=== PATIENT | male | born 1975 | race Caucasian/White ===

== ENCOUNTER 2017-06-03 20:21 | Emergency (ER) | payer SELFPAY ==
[~2017-06-03 20:21] MED LIST: ISOVUE-370 76%-LOCM 1 ML ONE
[2017-06-03 20:54] LABS: #Basophils 0.1 thou/uL (0.0-0.2); #Eosinphils 0.1 thou/uL (0.0-0.7); #Lymphocytes 2.6 thou/uL (1.20-3.40); %Basophils 0.5 % (0.0-1.0); %Eosinophils 1.3 % (0.0-10.0); %Lymphocytes 24.3 % (21.0-51.0); %Monocytes 8.8 % (0.0-10.0); Hematocrit 39.5 % (42.0-52.0); Mean Platelet Volume 7.1 fL (7.4-10.4); Red Blood Cell (RBC) Count 4.47 mill/uL (4.70-6.10); White Blood Cell (WBC) Count 10.8 thou/uL (4.8-10.8)
[2017-06-03] MEDS ORDERED: Dexamethasone 10 MG/ML VIAL ONE (21:05)
[2017-06-03] MEDS ORDERED: Ketorolac Tromethamine 30 MG/ML VIAL ONE (21:05)
[2017-06-03 21:08] LABS: Lactic Acid - Sepsis 1.1 mmol/L (0.5-2.2)
[2017-06-03 21:10] LABS: ALT (SGPT) 21 U/L (8-55); AST (SGOT) 17 U/L (5-34); Alkaline Phosphatase 62 U/L (40-150); Anion Gap 9 mmol/L (10-20); BUN (Urea Nitrogen) 11 mg/dL (8.9-20.6); Bilirubin, Total 0.4 mg/dL (0.2-1.2); Calc. Creatinine Clearance 0 mL/min (70-130); Calcium 8.6 mg/dL (7.8-10.44); Carbon Dioxide 31 mmol/L (22-29); Chloride 102 mmol/L (98-107); Estimated GFR-MDRD Greater than 90; Globulin 3.1 g/dL (2.4-3.5); Protein, Total 6.6 g/dL (6.0-8.3)
[2017-06-03] MEDS ORDERED: MEROPENEM 1 GM/50 ML 1 GM in Premix Bag 1 BAG IVPB SCH (21:15)
--- NOTE | 2017-06-03 22:06 | RAD ---
ONE VIEW CHEST: HISTORY: Dyspnea. Shortness of breath. COMPARISON: None. FINDINGS: Normal cardiac silhouette. The pulmonary vessels and hilum are normal. The costophrenic angles are c lear. No mass. No consolidation. No pneumothorax or osseous abnormalities. IMPRESSION: No cardiopulmonary process process. POS: [facility]
--- NOTE | 2017-06-03 23:09 | CT ---
EXAM: POSTCONTRAST SOFT TISSUE NECK CT 06/03/17 HISTORY: Left ear pain. Pain radiating to left neck and face. Patient was given antibiotics and ear drops pietro ier today. Difficulty swallowing. COMPARISON: None. TECHNIQUE: Postcontrast soft tissue neck CT performed in the axial plane. Reformatted images are submitted for i nterpretation. FINDINGS: The visualized brain parenchyma is remarkable. Bilateral ocular lenses are appropriately located. Both globes are intact. Retrobulbar fat is preserv ed. Symmetric attenuation of the optic nerves and ocular rectus muscles. Adequate aeration of the visualized paranasal sinuses. Aerodigestive tract is patent. No mucosal abnormality. Epiglottis has a normal caliber. Pre-epiglotti c fat is preserved. Midline fatty raphae of the tongue is preserved. No obvious mass in the oral cavi ty. Symmetric attenuation of the sternocleidomastoid muscles. Symmetric attenuation of the parotid and echols bmandibular glands. Thyroid gland is unremarkable. There are nonspecific, nonenlarged bilateral soft tissue neck lymph nodes. Grossly, the great vessels of the neck are patent. There are varying degrees of central canal stenosis and foraminal narrowing on the basis of degenerat lexie change. No high grade stenosis or high grade foraminal narrowing. Evaluation is limited by techni que. Upper mediastinum and lung apices a unremarkable. There is adequate aeration of the right mastoid air cells. There is partial opacification of the left mastoid air cells and partial opacification of the left middle ear. There is enhancement involving the left external auditory canal. There is periauric ular subcutaneous fat stranding. There is no evidence of a drainable abscess. No evidence of a draina ble abscess radiating down the left neck. IMPRESSION: 1. Left otitis externa. There is partial opacification of the left middle ear and left mastoid a ir cells. A component of otitis media and mastoiditis cannot be excluded. Clinical correlation is ess ential. 2. Nonspecific upper limit normal lymph nodes in the left and right neck. No evidence of a drain able abscess in the left or right neck. POS: [facility]
== END 2017-06-04 00:29 | disposition home or self-care (01) ==
LOC: ERS 20:21
DX: H60.22 Malignant otitis externa, left ear (principal); H66.92 Otitis media, unspecified, left ear; E66.9 Obesity, unspecified; F17.210 Nicotine dependence, cigarettes, uncomplicated; F41.9 Anxiety disorder, unspecified; F32.9 Major depressive disorder, single episode, unspecified
CPT/HCPCS: 36415; 70491; 71010; 83605; 87040; 94760; 96361; 96365; 96375; J1100; J1885; J1956

== ENCOUNTER 2024-03-22 11:32 | Outpatient (CLI) | payer OTHER | END 2024-03-22 11:33 | disposition home or self-care (01) | LOC: SCSMRI 11:32 | DX: S83.242A Other tear of medial meniscus, current injury, left knee, initial encounter (principal); R93.7 Abnormal findings on diagnostic imaging of other parts of musculoskeletal system; M23.92 Unspecified internal derangement of left knee ==